=== PATIENT | male | born 1985 | race Caucasian/White ===

== ENCOUNTER 2020-11-17 13:14 | Emergency (ER) | payer BC, OTHER ==
[~2020-11-17] VITALS: Ht 170.2 cm; Wt 81.4 kg
[~2020-11-17 13:14] MED LIST: AZIT250T PO; NO HOME MEDS
[2020-11-17 15:29] LABS: CLARITY,URINE CLEAR (Clear); COLOR,URINE STRAW (Yellow); GLUCOSE, URINE NEGATIVE (Neg); KETONES,URINE NEGATIVE (Neg); LEUKOCYTE ESTERASE ,URINE NEGATIVE (Neg); NITRITES, URINE NEGATIVE (Neg); OCCULT BLOOD,URINE NEGATIVE (Neg); PROTEIN,URINE NEGATIVE (Neg); UA COLLECTION TYPE URINAL; UROBILINOGEN,URINE 0.2 E.U/dL (0.2-1.0)
[2020-11-17 15:33] VITALS: BP 129/77
== END 2020-11-17 16:41 | disposition home or self-care (01) ==
LOC: ER 13:15
DX: M54.6 Pain in thoracic spine (principal); F12.10 Cannabis abuse, uncomplicated; Z79.899 Other long term (current) drug therapy
CPT/HCPCS: 72070; 81003; 99284